=== PATIENT | female | born 1950 | race Caucasian/White ===

== ENCOUNTER 2021-11-08 15:38 | Emergency (ER) | payer OTHER ==
[~2021-11-08] VITALS: Ht 149.9 cm; Wt 65.8 kg
[2021-11-08 19:41] LABS: International Normalized Ratio 1.64; Prothrombin Time Results 16.7 Sec (9.7-11.5)
[2021-11-08 20:54] LABS: Influenza A, PCR NEGATIVE (NEGATIVE); Influenza B, PCR NEGATIVE (NEGATIVE); Resp Syncytial Virus, PCR NEGATIVE (NEGATIVE); SARS-Cov-2 (COVID-19) PCR, MMC NEGATIVE (NEGATIVE)
== END 2021-11-08 21:00 | disposition short-term general hospital (02) ==
LOC: ER 15:38
PROVIDERS: Student in an Organized Health Care Education/Training Program
DX: E80.7 Disorder of bilirubin metabolism, unspecified (principal); K83.8 Other specified diseases of biliary tract; R74.01 Elevation of levels of liver transaminase levels; I10 Essential (primary) hypertension; Z95.5 Presence of coronary angioplasty implant and graft; Z20.822 Contact with and (suspected) exposure to COVID-19; Z79.899 Other long term (current) drug therapy; Z79.82 Long term (current) use of aspirin
CPT/HCPCS: 0241U; 76705; 85610; J2543

== ENCOUNTER → 2021-11-08 | Outpatient (CLI) | payer OTHER ==
[~2021-11-08] MED LIST: AMLO5 PO; ASPI81CH PO; ATOR40TA PO; Antivert25 MG PO; CODACE30 PO; EPINEPHRIN0.15 MG/01 IM; FISH OIL 1,0001 EAC1 PO; HYDCHL12.5 PO; HYDCHL25 PO; LISI20 PO; METO50ER PO; POTCHL10ER PO; Prinivil10 MG PO
[2021-11-08 11:53] LABS: BASOPHILS ABSOLUTE AUTO 0.06 K/mm3 (0.00-0.23); BASOPHILS PERCENT AUTO 1 % (0-2); EOSINOPHILS ABSOLUTE AUTO 0.04 K/mm3 (0.00-0.68); EOSINOPHILS PERCENT AUTO 1 % (0-6); Hematocrit 38.9 % (33.0-51.0); Hemoglobin 13.5 g/dL (11.5-16.0); IMMATURE GRAN ABSOLUTE AUTO 0.03 K/mm3 (0.00-0.10); IMMATURE GRAN PERCENT AUTO 0 % (0-1); LYMPHOCYTES PERCENT AUTO 10 % (21-46); MONOCYTES ABSOLUTE AUTO 0.44 K/mm3 (0.16-1.47); MONOCYTES PERCENT AUTO 6 % (4-13); Mean Corpuscular HGB 29.5 pg (26.0-34.0); Mean Corpuscular HGB Conc 34.7 g/dL (31.5-36.5); Mean Corpuscular Volume 85 fL (80-100); Mean Platelet Volume 10.8 fL (9.1-12.4); NEUTROPHILS ABSOLUTE AUTO 6.11 K/mm3 (1.96-9.15); NEUTROPHILS PERCENT AUTO 83 % (41-73); Platelet Count 254 K/mm3 (150-400); RDW Coefficient Variation 17.4 % (11.7-14.2); RDW Standard Deviation 52.8 fL (35.1-46.3); Red Blood Cell Count 4.57 M/mm3 (3.80-5.20); White Blood Cell Count 7.38 K/mm3 (4.00-11.30)
[2021-11-08 12:11] LABS: Alanine Aminotransfer (ALT/SGP 613 U/L (12-78); Albumin, Blood 2.7 g/dL (3.4-5.0); Albumin/Globulin Ratio 0.6 (0.8-1.8); Amylase, Blood 43 U/L (25-115); Anion Gap 9 mmol/L (6-16); Aspartate Aminotrans (AST/SGOT 763 U/L (12-37); Bilirubin, Total 22.5 mg/dL (0.1-1.0); Blood Urea Nitrogen 13 mg/dL (8-24); Bun/Creatinine Ratio 14.9 (12.0-20.0); CO2, Blood 25 mmol/L (21-32); Chloride, Blood 98 mmol/L (98-108); Creatinine, Blood 0.87 mg/dL (0.40-1.00); Globulin, Blood 4.5 g/dL (2.2-4.0); Glomerular Filtration Rate 71 (60-); Glucose, Blood 104 mg/dL (70-99); Potassium, Blood 3.8 mmol/L (3.5-5.5); Sodium, Blood 132 mmol/L (136-145); Total Protein, Blood 7.2 g/dL (6.4-8.2)
[2021-11-08 12:16] LABS: Alk Phos >2330 U/L (40-126)
== END | disposition home or self-care (01) ==
LOC: LAB 11:46 → LAB SHORT 11:46
PROVIDERS: Physician Assistant Medical
DX: R17 Unspecified jaundice (principal)
CPT/HCPCS: 80053; 82150; 83690; 85025

== ENCOUNTER 2021-12-17 15:05 | Inpatient (IN) | payer OTHER ==
[~2021-12-17] VITALS: Ht 149.9 cm; Wt 56.2 kg
[2021-12-17 15:59] LABS: Hematocrit 32.3 % (33.0-51.0); Hemoglobin 10.7 g/dL (11.5-16.0); Mean Corpuscular HGB 31.1 pg (26.0-34.0); Mean Corpuscular HGB Conc 33.1 g/dL (31.5-36.5); Mean Corpuscular Volume 94 fL (80-100); Mean Platelet Volume 10.7 fL (9.1-12.4); Platelet Count 89 K/mm3 (150-400); RDW Standard Deviation 54.9 fL (35.1-46.3); Red Blood Cell Count 3.44 M/mm3 (3.80-5.20); White Blood Cell Count 13.12 K/mm3 (4.00-11.30)
[2021-12-17 16:17] LABS: Albumin, Blood 2.2 g/dL (3.4-5.0); Albumin/Globulin Ratio 0.7 (0.8-1.8); Bilirubin, Total 5.2 mg/dL (0.1-1.0); Bun/Creatinine Ratio 23.1 (12.0-20.0); Calcium, Blood 9.6 mg/dL (8.5-10.1); Creatinine, Blood 1.04 mg/dL (0.40-1.00); Potassium, Blood 3.3 mmol/L (3.5-5.5); Total Protein, Blood 5.2 g/dL (6.4-8.2)
[2021-12-17 16:27] LABS: BAND PERCENT MAN 8 % (0-8); BASOPHILS PERCENT MAN 0 % (0-2); EOSINOPHILS PERCENT MAN 0 % (0-6); LYMPHOCYTES ABSOLUTE MAN 0.39 K/mm3 (0.84-5.20); LYMPHOCYTES PERCENT MAN 3 % (21-46); METAMYELOCYTE ABSOLUTE MAN 0.13 K/mm3 (0.00-0.00); METAMYELOCYTE PERCENT MAN 1 % (0-0); MONOCYTES ABSOLUTE MAN 0.13 K/mm3 (0.16-1.47); MONOCYTES PERCENT MAN 1 % (4-13); NEUTROPHILS ABSOLUTE MAN 12.46 K/mm3 (1.96-9.15); SEG NEUTROPHILS PERCENT MAN 87 % (41-73); TOTAL CELLS COUNTED 100
[2021-12-17 17:18] LABS: Influenza A, PCR NEGATIVE (NEGATIVE); Influenza B, PCR NEGATIVE (NEGATIVE); Resp Syncytial Virus, PCR NEGATIVE (NEGATIVE); SARS-Cov-2 (COVID-19) PCR, MMC NEGATIVE (NEGATIVE)
[2021-12-17 18:02] LABS: Source, Urine Clean Catch
[2021-12-17 18:10] LABS: Appearance, Urine Turbid (Clear); Blood, Urine 2+ (Neg); Color, Urine Amber (P-Yellow); Glucose Qualitative, Urine Neg (Neg); Ketones, Urine 1+ (Neg); Leukocyte Esterase, Urine 1+ (Neg); Nitrite, Urine Pos (Neg); Protein, Urine 3+ (Neg); Specific Gravity, Urine 1.015 (1.003-1.022); Urobilinogen, Urine 2+ (Normal)
[2021-12-17 18:42] LABS: Bilirubin, Urine 2+ (Neg)
[2021-12-17 18:46] LABS: Bacteria Mod /hpf; Squamous Epithelial Cells Few /hpf (Few)
[2021-12-17 18:48] LABS: Amorphous Mod (0-Heavy); Hyaline Casts 0-2 /lpf (0-2)
[2021-12-17 18:49] LABS: Transitional Epithelial Cells Few /hpf (0-Rare)
--- NOTE | 2021-12-18 01:00 | NUR ---
PT ADMITTED TO ROOM ICU 5 FROM ED. PT ARRIVES TO ROOM AT 2345. SLIDE TRANSFERRED TO BED FROM [facility]. PT ABLE TO MAKE HER NEEDS KNOWN. BLOOD PRESSURES REMAIN LOW. LEVOPHED INITIATED AT 3MCG'S/MIN. NS WITH 20 MeQ POTASSIUM AT 125 PER HOUR. BLADDER SCAN DONE WITH REVEALS 263 ML URINE. SECONDAR IV ATTEMPTED WITHOUT SUCCESS. DR BRADEN TO PLACE CENTRAL LINE.
--- NOTE | 2021-12-18 03:42 | NUR ---
PT CURRENTLY AT 13 MCG'S LEVOPHED TO MAINTAINS SATURATION > 65. REMAINS ON ROOM AIR WITH SATURATIONS > 90 PERCENT. CENTRAL LINE OK'D TO BE USED BY DR BRADEN POST NONI. PT FRANCESCAENLTY RESTING IN BED. REMAINS IN SINUS TACH WITH RATE 110'S. NO S/S ADVERSE REACTIONS TO ANTIBIOTIC THERAPY. WILL CONTINUE TO MONITOR PT.
[2021-12-18 05:36] LABS: Hematocrit 32.1 % (33.0-51.0); Hemoglobin 10.5 g/dL (11.5-16.0); Mean Corpuscular HGB 30.6 pg (26.0-34.0); Mean Corpuscular HGB Conc 32.7 g/dL (31.5-36.5); Mean Corpuscular Volume 94 fL (80-100); Mean Platelet Volume 11.2 fL (9.1-12.4); Platelet Count 68 K/mm3 (150-400); RDW Coefficient Variation 16.1 % (11.7-14.2); RDW Standard Deviation 55.8 fL (35.1-46.3); Red Blood Cell Count 3.43 M/mm3 (3.80-5.20); White Blood Cell Count 19.22 K/mm3 (4.00-11.30)
[2021-12-18] MEDS ORDERED: HYDROCODONE-AC1 EAC7 PO (05:36)
[2021-12-18 05:55] LABS: Albumin, Blood 1.8 g/dL (3.4-5.0); Albumin/Globulin Ratio 0.6 (0.8-1.8); Bun/Creatinine Ratio 32.2 (12.0-20.0); Calcium, Blood 8.7 mg/dL (8.5-10.1); Creatinine, Blood 0.9 mg/dL (0.40-1.00); Globulin, Blood 3.1 g/dL (2.2-4.0); Potassium, Blood 3.6 mmol/L (3.5-5.5); Total Protein, Blood 4.9 g/dL (6.4-8.2)
[2021-12-18 06:00] LABS: BAND PERCENT MAN 10 % (0-8); BASOPHILS PERCENT MAN 0 % (0-2); EOSINOPHILS PERCENT MAN 0 % (0-6); MONOCYTES PERCENT MAN 0 % (4-13); MYELOCYTE ABSOLUTE MAN 0.76 K/mm3 (0.00-0.00); MYELOCYTE PERCENT MAN 4 % (0-0); NEUTROPHILS ABSOLUTE MAN 18.45 K/mm3 (1.96-9.15); SEG NEUTROPHILS PERCENT MAN 86 % (41-73); TOTAL CELLS COUNTED 100
--- NOTE | 2021-12-18 09:21 | NUR ---
Pt aggitated and dyspnic some delirium noted. Pt declining on pressor support. Dr Parker in to see patient suggest hospice care. Notifed her siter alfred about her decline. She was [place] route [place] airport with family to come here. She dicussed with family and made her comfort. Review with physicians of family decision. Pt placed on comfort added some meds to help her symptoms hope is with supportive care family can arrive. Will update chaplian.
[2021-12-18 09:52] LABS: Source, Urine Foley catheter
[2021-12-18 09:55] LABS: Appearance, Urine Clear (Clear); Blood, Urine 3+ (Neg); Color, Urine Yellow (P-Yellow); Glucose Qualitative, Urine Neg (Neg); Ketones, Urine Neg (Neg); Leukocyte Esterase, Urine Neg (Neg); Nitrite, Urine Neg (Neg); Protein, Urine 2+ (Neg); Specific Gravity, Urine 1.015 (1.003-1.022); Urobilinogen, Urine 1+ (Normal)
[2021-12-18 10:23] LABS: Bilirubin, Urine 2+ (Neg)
[2021-12-18 10:37] LABS: Transitional Epithelial Cells Few /hpf (0-Rare)
[2021-12-18 10:40] LABS: Bacteria Not Seen /hpf; Red Blood Cells, Urine 0-2 /hpf (0-2); Squamous Epithelial Cells Not Seen /hpf (Few)
[2021-12-18 10:41] LABS: Calcium Oxalate Crystals Few /hpf
[2021-12-18 10:50] LABS: Renal Epithelial Few /hpf (0-Rare)
--- NOTE | 2021-12-18 10:54 | NUR ---
ASSUMED CARE OF PT, REPORT RCV'D FROM LAUREN BRITTON. PT ALERT TO VERBAL STIMULATION, WITHDRAWN AND IRRITABLE. 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 PT IS GRUNTING AND APPEARS VERY UNCOMFORTABLE, PT DENIES PAIN AT THIS TIME. DR. RAINES AT BEDSIDE, PT REPORTS DIFFICULTY BREATHING. MEDICATION ORDER RECEIVED TO ALLEVIATE AIR HUNGER. PALLIATIVE CARE NURSE SPEAKING WITH PT'S SISTER CHUCKY WHO AGREES TO TRANSITION TO COMFORT CARE, SISTER IS FLYING FROM [place] TODAY, OTHER SISTER GILSON DRIVING FROM [place] TODAY AND BROTHER FROM [place]. PT BEING KEPT ICU STATUS, LEVOPHED REMAINS INFUSING. PT MEDICATED FOR HER COMFORT. SEE FULL SHIFT ASSESSMENT.
--- NOTE | 2021-12-18 18:33 | NUR ---
PT TRANSITIONED TO COMFORT CARE. ORDERS PLACED AND PT MEDICATED NEEDED FOR COMFORT. PT'S FAMILY AT BEDSIDE, DR. RAINES DISCUSSED PTS STATUS. FAMILY AGREES WITH COMFORT CARE. DENIES ANY QUESTIONS AT THIS TIME.
--- NOTE | 2021-12-18 20:18 | NUR ---
ASSUMED CARE OF PT @ 1900. PT COMFORT CARE, FAMILY AT BEDSIDE. PT APPEARS COMFORTABLE AT THIS TIME, WILL MONITOR CLOSELY FOR DISTRESS.
--- NOTE | 2021-12-19 00:54 | NUR ---
PATIENT NOTE. ASSUMED CARE OF PATIENT AT 1250. PATIENT IS COMFORT CARE. PATIENTS FAMILY AT BEDSIDE. PATIENT LIFTED AND PUT ON EGGCRATE MATTRESS FOR COMFORT. PATIENT APPEARS COMFORTABLE, WILL MONITOR CLOSELY FOR COMFORT.
--- NOTE | 2021-12-19 00:55 | NUR ---
PT TX TO MEDICAL ROOM 331. BELONGINGS TAKEN UP WITH PT. RING ON LEFT FINGER REMOVED PER FAMILY REQUEST, GIVEN TO PTS BARBARA VALLEJO, CLEMENT DOE.
--- NOTE | 2021-12-19 04:01 | NUR ---
COMFORT CARE SUMMARY PATIENT A RECENT TRANSFER FROM ICU5. PATIENT HAS BEEN UNRESPONSIVE THIS SHIFT. PATIENT HAS BEEN MEDICATED WITH ROXINOL FOR AIR HUNGER ONCE. PATIENT HAS BEEN SUCTION SETUP AND HAS BEEN SUCTIONED TWICE. FAMILY HAS BEEN WITH PATIENT ALL SHIFT. PATIENT APPEARS COMFORTABLE. FAMILY HAS NO CONCERNS OR NEEDS AT THIS TIME. WILL CONTINUE TO MONITOR.
--- NOTE | 2021-12-19 10:06 | NUR ---
Spoke with Dr Parker and discussed case prior to Pt visit. Pt resting in bed with her eyes closed. Pt is non responsive and appears comfortable with no S/S of distress at this time. Family at bedside. Offered supportive visit to family and answered questions. Family expresses appreciation and reports no concerns at this time. Spoke with Primary RN Zenaida and discussed case. Palliative Care will remain available.
--- NOTE | 2021-12-19 17:36 | NUR ---
Shift Summary Apneic breathing more prominent. Family declines roxanol. Patient appears comfortable. Reposition as needed. Family providing oral care. Atropine PRN.
== END 2021-12-19 23:20 | DRG 871 ==
LOC: ER 15:05 → PCU 22:54 → ICUE 22:54 → ICUW 22:54 → ER 22:54 → ICUE 23:35 → MEDS 12-19 00:51
PROVIDERS: Family Medicine; Internal Medicine; Student in an Organized Health Care Education/Training Program; ADMIT Hospitalist
PROC: 3E033XZ Introduction of Vasopressor into Peripheral Vein, Percutaneous Approach (ICD-10-PCS; principal; 2021-12-17)
PROC: 3E03329 Introduction of Other Anti-infective into Peripheral Vein, Percutaneous Approach (ICD-10-PCS; 2021-12-17)
DX: A41.89 Other specified sepsis (principal); I81 Portal vein thrombosis; K76.3 Infarction of liver; R65.21 Severe sepsis with septic shock; C78.7 Secondary malignant neoplasm of liver and intrahepatic bile duct; N39.0 Urinary tract infection, site not specified; C78.02 Secondary malignant neoplasm of left lung; C78.01 Secondary malignant neoplasm of right lung; Z66 Do not resuscitate; Z51.5 Encounter for palliative care; I16.0 Hypertensive urgency; R55 Syncope and collapse; Z79.82 Long term (current) use of aspirin; Z79.899 Other long term (current) drug therapy; Z90.710 Acquired absence of both cervix and uterus; Z95.5 Presence of coronary angioplasty implant and graft; Z90.49 Acquired absence of other specified parts of digestive tract
CPT/HCPCS: 0241U; 36415; 36556; 51701; 51798; 70450; 71045; 71260; 74177; 80053; 81001; 82947; 83605; 83690; 83880; 84484; 85025; 87040; 87077; 87086; 87186; 93005; 93010; 96361; 96374-59; 99285-25; A9270; C1751; J0696; J1644; J2060; J3480; J7030; J7060; Q9967